=== PATIENT | female | born 1985 | race Two or more races ===

== ENCOUNTER 2020-03-31 14:10 | Outpatient (CLI) | payer OTHER ==
[~2020-03-31] VITALS: Ht 165.1 cm; Wt 43.8 kg
[2020-03-31] MEDS ORDERED: ZEGERID 40 MG1 EACH PO (14:37)
[2020-03-31] MEDS ORDERED: FLONASE16 GM NASAL (14:37)
[2020-03-31] MEDS ORDERED: PEPCID40 MG PO (14:38)
[2020-03-31] MEDS ORDERED: ZYRTEC10 M3 PO (14:39)
[2020-03-31] MEDS ORDERED: SINGULAIR 10MG10 MG PO (14:39)
== END 2020-03-31 15:02 | disposition home or self-care (01) ==
LOC: OFIC 805 14:10
PROVIDERS: ATTEND Otolaryngology
DX: K21.0 Gastro-esophageal reflux disease with esophagitis (principal); J30.89 Other allergic rhinitis; J32.8 Other chronic sinusitis

== ENCOUNTER 2020-03-31 15:09 | Outpatient (CLI) | payer OTHER ==
[~2020-03-31 15:09] MED LIST: FLONASE16 GM NASAL; PEPCID40 MG PO; SINGULAIR 10MG10 MG PO; ZEGERID 40 MG1 EACH PO; ZYRTEC10 M3 PO
== END 2020-03-31 15:41 | disposition home or self-care (01) ==
LOC: TOM 15:09
PROVIDERS: ATTEND Otolaryngology
DX: J30.89 Other allergic rhinitis (principal); J32.8 Other chronic sinusitis

== ENCOUNTER 2021-05-11 11:32 | Emergency (ER) | payer OTHER ==
[~2021-05-11] VITALS: Ht 165.1 cm; Wt 59.4 kg
== END 2021-05-11 17:50 | disposition home or self-care (01) ==
LOC: ER 11:32
DX: R10.2 Pelvic and perineal pain (principal)